=== PATIENT | female | born 1940 | race Caucasian/White ===

== ENCOUNTER 2022-03-15 14:55 | Inpatient (IN) | payer MEDICARE, BC ==
[~2022-03-15] VITALS: Ht 165.1 cm; Wt 78.0 kg
[2022-03-15] MEDS ORDERED: MORPHINE SULFATE 4 MG/1 ML DISP.SYRIN IV ONE (15:15)
[2022-03-15] MEDS ORDERED: IV NORMAL SALINE 1000 ML BAG IV ONE (15:15)
[2022-03-15] MEDS ORDERED: MORPHINE SULFATE 4 MG/1 ML DISP.SYRIN ONE (15:22)
[2022-03-15 15:35] LABS: HEMATOCRIT 38.2 % (31.2-41.9); MEAN CORPUSCULAR HEMOGLOBIN 28.2 uug (24.7-32.8); MEAN CORPUSCULAR VOLUME 87.3 fL (75.5-95.3); PLATELET COUNT (AUTO) 195 K/uL (179-408)
[2022-03-15 15:46] LABS: CREATININE 1.1 mg/dL (0.6-1.3); POTASSIUM 3.9 mmol/L (3.5-5.1)
[2022-03-15 15:57] LABS: BILIRUBIN,DIRECT 0.3 mg/dL (0.0-0.2); BILIRUBIN,TOTAL 1.2 mg/dL (0.2-1.0); TOTAL PROTEIN, SERUM 7.3 g/dL (6.4-8.2)
[2022-03-15 16:31] LABS: *BILIRUBIN,URIN NEGATIVE (NEGATIVE); *BLOOD, URINE 2+ (NEGATIVE); *CLARITY,URINE CLEAR (CLEAR); *COLOR,URINE YELLOW (YELLOW); *KETONES,URINE NEGATIVE (NEGATIVE); *UROBILINOGEN,URINE 0.2 E.U./dl (NORMAL); LEUKOCYTE ESTERASE ,URINE NEGATIVE (NEGATIVE); NITRITE, URINE NEGATIVE (NEGATIVE); PH,URINE 6.5 (5.0-8.0); UGLUCOSE NEGATIVE (NEGATIVE)
[2022-03-15 16:49] LABS: BACTERIA,URINE NONE SEEN /HPF (NONE SEEN); RBC,URINE 0-3 /HPF (0-3); SQUAMOUS EPITHELIAL CELL,UR FEW /HPF (NONE SEEN); URIC ACID CRYSTALS,URINE FEW /HPF (NONE SEEN); WBC,URINE NONE SEEN /HPF (0-3)
--- NOTE | 2022-03-15 16:49 | NUR ---
Dr Valentin spoke with Dr Andi Melo for surgery consult.
[2022-03-15] MEDS ORDERED: PIPERACILLIN/TAZOBACTAM/D5W 50 ML IV ONE ×2 (17:00→21:52)
[2022-03-15] MEDS ORDERED: PIPERACILLIN SODIUM/TAZOBACTAM 3.375 G in IV DEXTROSE 5% 50 ML IV ONE (17:00)
--- NOTE | 2022-03-15 17:05 | NUR ---
Dr Valentin spoke to Jimi [employer] elementary instructional coach for [facility] who accept patient.
[2022-03-15] MEDS ORDERED: FOLIC ACID PO (17:23)
[2022-03-15] MEDS ORDERED: TURM1CAP2 PO (17:23)
[2022-03-15] MEDS ORDERED: MULT-465 PO (17:23)
[2022-03-15] MEDS ORDERED: MAGN296S70 PO (17:23)
[2022-03-15] MEDS ORDERED: METO-356 PO (17:23)
[2022-03-15] MEDS ORDERED: ASPI81TA31 PO (17:23)
[2022-03-15] MEDS ORDERED: GABA600T12 PO (17:23)
[2022-03-15] MEDS ORDERED: METF-440 PO (17:23)
[2022-03-15] MEDS ORDERED: VALS1TAB2 PO (17:23)
[2022-03-15] MEDS ORDERED: HYDR-3980 PO (17:23)
[2022-03-15] MEDS ORDERED: UBID100C13 PO (17:23)
[2022-03-15] MEDS ORDERED: BUPR150T10 PO (17:23)
[2022-03-15] MEDS ORDERED: DULO20CA PO (17:23)
[2022-03-15] MEDS ORDERED: MELA3TAB41 PO (17:23)
[2022-03-15] MEDS ORDERED: VITAMIN D3 PO (17:23)
[2022-03-15] MEDS ORDERED: TRAZ-257 PO (17:23)
--- NOTE | 2022-03-15 19:10 | NUR ---
Change of shift report from Portia CALDERA
[2022-03-15] MEDS ORDERED: PANTOPRAZOLE SODIUM IV 40 MG in IV DEXTROSE 5% 100 ML IV SCH (19:15)
[2022-03-15] MEDS ORDERED: ONDANSETRON 4 MG/2 ML VIAL IV PRN (19:15)
[2022-03-15] MEDS ORDERED: ACETAMINOPHEN 325 MG TABLET PO PRN (19:15)
--- NOTE | 2022-03-15 19:37 | NUR ---
Patient will be transfered to M/S room 303 under Yarelis Krause NP
[2022-03-15 20:00] VITALS: BP 152/60
--- NOTE | 2022-03-15 20:10 | NUR ---
Report given to Bella CALDERA
--- NOTE | 2022-03-15 20:52 | NUR ---
Pt. admitted to m/s , under care of Yarelis Krause NP Belongs List completed
--- NOTE | 2022-03-15 20:55 | NUR ---
Admitted from ER via w/c, alert and oriented x3 Dx: Diverticulitis with possible perforation. No acute distress noted. Right AC heplock intact. NPO. Routine admission care done, oriented to room, TV, BR and call light. Plan of care initiated.
[2022-03-15] MEDS ORDERED: PANTOPRAZOLE SODIUM 40 MG VIAL IV SCH (21:00)
[2022-03-15] MEDS: MORPHINE SULFATE 2 MG/1 ML DISP.SYRIN IV PRN (21:47)
[2022-03-15] MEDS ORDERED: hydrALAZINE HCL 20 MG/1 ML VIAL IV PRN (22:00)
[2022-03-15] MEDS ORDERED: PIPERACILLIN SODIUM/TAZOBACTAM 3.375 G in IV DEXTROSE 5% 50 ML IV SCH (22:00)
[2022-03-15] MEDS ORDERED: DEXTROSE 50% 50 ML DISP.SYRIN IV PRN (22:00)
[2022-03-16] MEDS: PIPERACILLIN SODIUM/TAZOBACTAM 3.375 G in IV DEXTROSE 5% 100 ML IV SCH ×3 (00:53→16:02)
[2022-03-16] MEDS: BLOOD SUGAR DIAGNOSTIC 1 EACH STRIP VI SCH ×4 (00:53→17:06)
[2022-03-16] MEDS: INSULIN REGULAR, HUMAN 300 UNIT/3 ML VIAL SQ PRN ×5 (01:29→17:09)
--- NOTE | 2022-03-16 01:32 | NUR ---
Blood sugar 147, not covered d/t patient is on NPO. Roman Malcolm NP aware.
[2022-03-16] MEDS: MORPHINE SULFATE 2 MG/1 ML DISP.SYRIN IV PRN ×2 (03:32→17:17)
[2022-03-16 04:00] VITALS: BP 143/53
--- NOTE | 2022-03-16 06:41 | NUR ---
Regular insulin not given r/t patient is NPO, no signs of hyperglycemia noted.
[2022-03-16 08:28] LABS: HEMATOCRIT 36.3 % (31.2-41.9); MEAN CORPUSCULAR HEMOGLOBIN 28.6 uug (24.7-32.8); MEAN CORPUSCULAR VOLUME 87.8 fL (75.5-95.3); PLATELET COUNT (AUTO) 186 K/uL (179-408)
[2022-03-16 08:34] LABS: CREATININE 1.1 mg/dL (0.6-1.3); MAGNESIUM 1.8 mg/dL (1.8-2.4); PHOSPHOROUS 2.2 mg/dL (2.5-4.9); POTASSIUM 3.5 mmol/L (3.5-5.1)
[2022-03-16] MEDS ORDERED: PANTOPRAZOLE SODIUM 40 MG VIAL IV SCH ×2 (09:00→21:00)
[2022-03-16 11:13] VITALS: BP 134/54
[2022-03-16 15:12] VITALS: BP 139/77
[2022-03-16] MEDS ORDERED: NEUTRA PHOS PACKET PO ONE (16:00)
--- NOTE | 2022-03-16 17:22 | NUR ---
Pt refused to advance diet even though shes tolerating well. Pt is afraid that solid foods will hurt her stomach more. Pt is having bowel movements, loose. Administered PRN morphine.
[2022-03-16 20:42] VITALS: BP 159/70
[2022-03-17] MEDS: BLOOD SUGAR DIAGNOSTIC 1 EACH STRIP VI SCH ×5 (00:02→21:11)
[2022-03-17] MEDS: MORPHINE SULFATE 2 MG/1 ML DISP.SYRIN IV PRN ×3 (00:03→19:51)
[2022-03-17] MEDS: INSULIN REGULAR, HUMAN 300 UNIT/3 ML VIAL SQ PRN ×5 (00:39→21:13)
[2022-03-17] MEDS: PIPERACILLIN SODIUM/TAZOBACTAM 3.375 G in IV DEXTROSE 5% 100 ML IV SCH ×3 (00:59→18:08)
[2022-03-17] MEDS: LORAZEPAM 2 MG/1 ML VIAL IV PRN (01:09)
[2022-03-17 04:18] VITALS: BP 155/72
[2022-03-17 07:18] LABS: POTASSIUM 3.3 mmol/L (3.5-5.1)
[2022-03-17] MEDS ORDERED: DEXTROSE 50% 50 ML DISP.SYRIN IV PRN (07:30)
[2022-03-17] MEDS: PANTOPRAZOLE SODIUM 40 MG VIAL IV SCH (08:03)
[2022-03-17] MEDS ORDERED: MAGNESIUM CITRATE 296 ML BOTTLE PO PRN (08:30)
[2022-03-17] MEDS ORDERED: HYDROCODONE/APAP 10-325 MG TABLET PO PRN (08:30)
[2022-03-17] MEDS: METOPROLOL SUCCINATE XL 25 MG TAB.SR.24H PO SCH ×2 (08:50→21:11)
[2022-03-17] MEDS: MULTIVIT, IRON, MIN NO. 8, FA TABLET PO SCH (08:50)
[2022-03-17] MEDS: HYDROCHLOROTHIAZIDE 12.5 MG CAPSULE PO SCH (08:50)
[2022-03-17] MEDS: ASPIRIN 81 MG TAB.CHEW PO SCH (08:50)
[2022-03-17] MEDS: VALSARTAN 80 MG TABLET PO SCH (08:50)
[2022-03-17] MEDS: CHOLECALCIFEROL 1,000 UNIT TABLET PO SCH (08:50)
[2022-03-17] MEDS: GABAPENTIN 300 MG CAPSULE PO SCH ×2 (08:50→16:19)
[2022-03-17] MEDS: DULOXETINE 20 MG CAPSULE.DR PO SCH (08:50)
[2022-03-17] MEDS ORDERED: buPROPion SR 150 MG TABLET.SA PO SCH (09:00)
[2022-03-17] MEDS ORDERED: Medication Not On Formulary EA (Valsartan/Hydrochlorothiazide (Diovan Hct 80-12.5 Mg Tab PO SCH (09:00)
[2022-03-17] MEDS ORDERED: Medication Not On Formulary EA (Ubidecarenone (Coq-10) 200 MG) PO SCH (09:00)
[2022-03-17] MEDS ORDERED: FOLIC ACID 1 MG TABLET PO SCH (09:00)
[2022-03-17] MEDS ORDERED: Medication Not On Formulary EA (Turmeric/Turmeric Root Extract (Turmeric 500 mg Capsule) PO SCH (09:00)
[2022-03-17] MEDS: FOLIC ACID 1 MG TABLET PO SCH (09:07)
[2022-03-17 09:50] LABS: BILIRUBIN,TOTAL 2.1 mg/dL (0.2-1.0); POTASSIUM 3.4 mmol/L (3.5-5.1); TOTAL PROTEIN, SERUM 7.2 g/dL (6.4-8.2)
[2022-03-17] MEDS ORDERED: POTASSIUM CHLORIDE 20 MEQ POWDER PACKET PO ONE (10:30)
[2022-03-17] MEDS ORDERED: POTASSIUM CHLORIDE 20 MEQ TAB.PRT.SR PO ONE (11:00)
[2022-03-17 11:15] VITALS: BP 104/51
[2022-03-17] MEDS: buPROPion SR 150 MG TABLET.SA PO SCH (11:19)
[2022-03-17] MEDS: buPROPion SR 100 MG TABLET.SA PO SCH (11:19)
[2022-03-17] MEDS ORDERED: IOHEXOL 300MG/ML 100 ML INFUS..BTL ONE (14:57)
[2022-03-17] MEDS ORDERED: SWABABLE VALVE TRANSFER SET EA MC ONE (14:57)
[2022-03-17] MEDS ORDERED: IV NORMAL SALINE 250 ML IV ONE (14:57)
[2022-03-17 15:35] VITALS: BP 119/55
[2022-03-17] MEDS ORDERED: NEUTRA PHOS PACKET PO ONE (16:00)
[2022-03-17 20:00] VITALS: BP 130/59
[2022-03-17] MEDS: MELATONIN 3 MG TABLET PO SCH (21:10)
[2022-03-17] MEDS: TRAZODONE 100 MG TABLET PO SCH (21:10)
[2022-03-18] MEDS: PIPERACILLIN SODIUM/TAZOBACTAM 3.375 G in IV DEXTROSE 5% 100 ML IV SCH ×3 (01:01→16:34)
[2022-03-18 04:00] VITALS: BP 114/39
--- NOTE | 2022-03-18 06:45 | NUR ---
Roman Malcolm NP discussed result of CT of abdomen/pelvis with contrast, findings are suspicious for small bowel obstruction, likely due to adhesions at the site of sigmoid perforation. Relayed results to Dr. Aubrey Melo.
[2022-03-18 06:50] LABS: HEMATOCRIT 33.5 % (31.2-41.9); MEAN CORPUSCULAR HEMOGLOBIN 28.7 uug (24.7-32.8); MEAN CORPUSCULAR VOLUME 87.2 fL (75.5-95.3); PLATELET COUNT (AUTO) 208 K/uL (179-408)
[2022-03-18] MEDS: BLOOD SUGAR DIAGNOSTIC 1 EACH STRIP VI SCH ×4 (06:53→20:07)
[2022-03-18 07:04] LABS: CREATININE 1.1 mg/dL (0.6-1.3); POTASSIUM 3.6 mmol/L (3.5-5.1)
[2022-03-18 07:19] LABS: BILIRUBIN,TOTAL 1.5 mg/dL (0.2-1.0); TOTAL PROTEIN, SERUM 6.5 g/dL (6.4-8.2)
[2022-03-18] MEDS: INSULIN REGULAR, HUMAN 300 UNIT/3 ML VIAL SQ PRN (07:36)
[2022-03-18] MEDS: DULOXETINE 20 MG CAPSULE.DR PO SCH (08:02)
[2022-03-18] MEDS: ASPIRIN 81 MG TAB.CHEW PO SCH (08:02)
[2022-03-18] MEDS: MULTIVIT, IRON, MIN NO. 8, FA TABLET PO SCH (08:02)
[2022-03-18] MEDS: PANTOPRAZOLE SODIUM 40 MG VIAL IV SCH (08:02)
[2022-03-18] MEDS: VALSARTAN 80 MG TABLET PO SCH (08:03)
[2022-03-18] MEDS: METOPROLOL SUCCINATE XL 25 MG TAB.SR.24H PO SCH ×2 (08:03→20:06)
[2022-03-18] MEDS: buPROPion SR 150 MG TABLET.SA PO SCH (08:03)
[2022-03-18] MEDS: buPROPion SR 100 MG TABLET.SA PO SCH (08:03)
[2022-03-18] MEDS: FOLIC ACID 1 MG TABLET PO SCH (08:03)
[2022-03-18] MEDS: CHOLECALCIFEROL 1,000 UNIT TABLET PO SCH (08:03)
[2022-03-18] MEDS: GABAPENTIN 300 MG CAPSULE PO SCH ×2 (08:03→16:13)
[2022-03-18] MEDS: HYDROCHLOROTHIAZIDE 12.5 MG CAPSULE PO SCH (08:03)
[2022-03-18 12:00] VITALS: BP 130/58
[2022-03-18] MEDS ORDERED: DIATR MEGLU/DIATRIZOATE SODIUM 30 ML BOTTLE ONE (12:24)
[2022-03-18 15:55] VITALS: BP 116/60
[2022-03-18] MEDS: IV D5 1/2 NS 1000 ML 1,000 ML IV PRN (16:42)
[2022-03-18 20:00] VITALS: BP 101/60
[2022-03-18] MEDS: MELATONIN 3 MG TABLET PO SCH (20:06)
[2022-03-18] MEDS: TRAZODONE 100 MG TABLET PO SCH (20:07)
[2022-03-18] MEDS: MORPHINE SULFATE 2 MG/1 ML DISP.SYRIN IV PRN (22:23)
[2022-03-19] MEDS: PIPERACILLIN SODIUM/TAZOBACTAM 3.375 G in IV DEXTROSE 5% 100 ML IV SCH ×3 (00:10→17:04)
[2022-03-19 06:00] VITALS: BP 109/42
[2022-03-19] MEDS: BLOOD SUGAR DIAGNOSTIC 1 EACH STRIP VI SCH ×4 (06:08→21:00)
[2022-03-19] MEDS: PANTOPRAZOLE SODIUM 40 MG TABLET.DR PO SCH (06:09)
[2022-03-19 06:53] LABS: HEMATOCRIT 32.6 % (31.2-41.9); MEAN CORPUSCULAR HEMOGLOBIN 28.9 uug (24.7-32.8); MEAN CORPUSCULAR VOLUME 87.3 fL (75.5-95.3); PLATELET COUNT (AUTO) 206 K/uL (179-408)
[2022-03-19 07:04] LABS: CREATININE 0.9 mg/dL (0.6-1.3); POTASSIUM 3.1 mmol/L (3.5-5.1)
[2022-03-19 07:11] LABS: BILIRUBIN,TOTAL 1.6 mg/dL (0.2-1.0); TOTAL PROTEIN, SERUM 6.6 g/dL (6.4-8.2)
--- NOTE | 2022-03-19 08:00 | NUR ---
Kept pt NPO for procedure. Consent signed. F/u Call made to lab re: coagulation per lab they states in process. Fu with radiology on time set up with IR for the procedure awaiting call back froM IR to confirm.
[2022-03-19] MEDS ORDERED: ASPIRIN 81 MG TAB.CHEW PO SCH (09:00)
[2022-03-19] MEDS: POTASSIUM CHLORIDE 50 ML IV SCH ×4 (09:14→13:33)
[2022-03-19] MEDS: DULOXETINE 20 MG CAPSULE.DR PO SCH (09:25)
[2022-03-19] MEDS: buPROPion SR 150 MG TABLET.SA PO SCH (09:25)
[2022-03-19] MEDS: GABAPENTIN 300 MG CAPSULE PO SCH ×2 (09:26→17:04)
[2022-03-19] MEDS: HYDROCHLOROTHIAZIDE 12.5 MG CAPSULE PO SCH (09:26)
[2022-03-19] MEDS: MULTIVIT, IRON, MIN NO. 8, FA TABLET PO SCH (09:26)
[2022-03-19] MEDS: CHOLECALCIFEROL 1,000 UNIT TABLET PO SCH (09:26)
[2022-03-19] MEDS: METOPROLOL SUCCINATE XL 25 MG TAB.SR.24H PO SCH ×2 (09:26→22:08)
[2022-03-19] MEDS: FOLIC ACID 1 MG TABLET PO SCH (09:26)
[2022-03-19] MEDS: VALSARTAN 80 MG TABLET PO SCH (09:27)
[2022-03-19] MEDS: buPROPion SR 100 MG TABLET.SA PO SCH (09:47)
--- NOTE | 2022-03-19 10:00 | NUR ---
RAD states plan for procedure at 2pm. Another f/u call made with lab for coagulation. Lab states "they are having problems with the machines"
[2022-03-19] MEDS: MORPHINE SULFATE 2 MG/1 ML DISP.SYRIN IV PRN ×3 (11:12→22:09)
[2022-03-19 12:00] VITALS: BP 125/52
--- NOTE | 2022-03-19 12:30 | NUR ---
Still no results from lab. Asked to have long term care administrator deliver specimen at [facility] to process lab works.
[2022-03-19] MEDS ORDERED: MIDAZOLAM HCL 2 MG/2 ML VIAL IV PRN (13:00)
[2022-03-19] MEDS ORDERED: FENTANYL CITRATE 100 MCG/2 ML AMPUL IV PRN (13:00)
[2022-03-19] MEDS ORDERED: NALOXONE HCL 0.4 MG/ML AMPUL IV PRN (13:00)
[2022-03-19] MEDS: INSULIN REGULAR, HUMAN 300 UNIT/3 ML VIAL SQ PRN ×2 (13:03→22:23)
--- NOTE | 2022-03-19 15:00 | NUR ---
Lab coagulation resulted however IR dr cancelled procedure due to availability.
--- NOTE | 2022-03-19 15:32 | NUR ---
Updated from morning shift technologist. Waiting for labs to process. Phone called by VERENICE Deras for PT Adi, Labs sent out around 2:30pm. [place] to call Radiology Department when ready.
[2022-03-19 16:00] VITALS: BP 144/60
--- NOTE | 2022-03-19 16:18 | NUR ---
Received phone call per [place]. Rely message after informing the RN by 1pm Drainage per Dr. Danielle. Called the Floor to inform [place] via Christelle that Procedure to be done by 1pm tomorrow 03/01/2022.
[2022-03-19 20:00] VITALS: BP 122/62
[2022-03-19] MEDS: MELATONIN 3 MG TABLET PO SCH (22:08)
[2022-03-19] MEDS: IV D5 1/2 NS 1000 ML 1,000 ML IV PRN (22:09)
[2022-03-19] MEDS: TRAZODONE 100 MG TABLET PO SCH (22:10)
--- NOTE | 2022-03-19 22:30 | NUR ---
Pt complained of abdominal pain. Morphine given as ordered.
[2022-03-20] MEDS: PIPERACILLIN SODIUM/TAZOBACTAM 3.375 G in IV DEXTROSE 5% 100 ML IV SCH ×3 (01:42→17:56)
[2022-03-20 03:30] VITALS: BP 132/65
[2022-03-20 06:35] LABS: HEMATOCRIT 31.5 % (31.2-41.9); MEAN CORPUSCULAR HEMOGLOBIN 29.1 uug (24.7-32.8); MEAN CORPUSCULAR VOLUME 86.4 fL (75.5-95.3); PLATELET COUNT (AUTO) 228 K/uL (179-408)
[2022-03-20] MEDS: PANTOPRAZOLE SODIUM 40 MG TABLET.DR PO SCH (06:46)
[2022-03-20] MEDS: BLOOD SUGAR DIAGNOSTIC 1 EACH STRIP VI SCH ×4 (06:46→21:21)
[2022-03-20 07:02] LABS: PHOSPHOROUS 3.2 mg/dL (2.5-4.9)
--- NOTE | 2022-03-20 07:04 | NUR ---
Slept intermittently. Maintained NPO since midnight. All needs attended.
[2022-03-20 07:17] LABS: POTASSIUM 3.3 mmol/L (3.5-5.1)
[2022-03-20 07:23] LABS: BILIRUBIN,TOTAL 0.8 mg/dL (0.2-1.0); TOTAL PROTEIN, SERUM 6.5 g/dL (6.4-8.2)
[2022-03-20] MEDS: MORPHINE SULFATE 2 MG/1 ML DISP.SYRIN IV PRN ×3 (08:06→23:57)
[2022-03-20] MEDS ORDERED: ASPIRIN 81 MG TAB.CHEW PO SCH (09:00)
[2022-03-20] MEDS: ASPIRIN 81 MG TAB.CHEW PO SCH (09:00)
--- NOTE | 2022-03-20 09:00 | NUR ---
PT STILL NPO. HELD MORNING MEDS. PT WILL UNDERGO A CT GUIDED DRAINAGE EXTRALUMINAL FLUID. WILL GIVE MEDS AFTER THE PROCEDURE.
[2022-03-20] MEDS: POTASSIUM CHLORIDE 50 ML IV SCH ×2 (10:31→11:00)
[2022-03-20 11:32] VITALS: BP 126/54
[2022-03-20] MEDS ORDERED: LIDOCAINE HCL 1% 20 ML VIAL ONE (12:13)
[2022-03-20] MEDS ORDERED: NALOXONE HCL 0.4 MG/ML AMPUL IV PRN (13:00)
[2022-03-20] MEDS ORDERED: MIDAZOLAM HCL 2 MG/2 ML VIAL IV PRN (13:00)
[2022-03-20] MEDS ORDERED: FENTANYL CITRATE 100 MCG/2 ML AMPUL IV PRN (13:00)
[2022-03-20] MEDS ORDERED: FLUMAZENIL 0.5 MG/5 ML VIAL IVP PRN (13:00)
[2022-03-20 15:30] VITALS: BP 115/42
[2022-03-20 15:55] VITALS: BP 136/46
[2022-03-20 16:05] VITALS: BP 134/45
[2022-03-20] MEDS: DULOXETINE 20 MG CAPSULE.DR PO SCH (16:32)
[2022-03-20] MEDS: FOLIC ACID 1 MG TABLET PO SCH (16:33)
[2022-03-20] MEDS: CHOLECALCIFEROL 1,000 UNIT TABLET PO SCH (16:34)
[2022-03-20] MEDS: buPROPion SR 100 MG TABLET.SA PO SCH (16:34)
[2022-03-20] MEDS: MULTIVIT, IRON, MIN NO. 8, FA TABLET PO SCH (16:34)
[2022-03-20] MEDS: GABAPENTIN 300 MG CAPSULE PO SCH ×2 (16:34→17:00)
[2022-03-20] MEDS: buPROPion SR 150 MG TABLET.SA PO SCH (16:35)
[2022-03-20] MEDS: VALSARTAN 80 MG TABLET PO SCH (16:35)
[2022-03-20] MEDS: METOPROLOL SUCCINATE XL 25 MG TAB.SR.24H PO SCH ×2 (16:39→22:31)
[2022-03-20] MEDS: HYDROCHLOROTHIAZIDE 12.5 MG CAPSULE PO SCH (16:42)
[2022-03-20 19:49] VITALS: BP 131/42
[2022-03-20] MEDS: TRAZODONE 100 MG TABLET PO SCH (21:21)
[2022-03-20] MEDS: MELATONIN 3 MG TABLET PO SCH (21:21)
[2022-03-20] MEDS: INSULIN REGULAR, HUMAN 300 UNIT/3 ML VIAL SQ PRN (21:26)
[2022-03-21] MEDS: PIPERACILLIN SODIUM/TAZOBACTAM 3.375 G in IV DEXTROSE 5% 100 ML IV SCH ×3 (00:34→18:03)
[2022-03-21] MEDS: LORAZEPAM 2 MG/1 ML VIAL IV PRN (01:58)
[2022-03-21 04:20] VITALS: BP 127/48
[2022-03-21] MEDS: PANTOPRAZOLE SODIUM 40 MG TABLET.DR PO SCH (06:04)
[2022-03-21] MEDS: BLOOD SUGAR DIAGNOSTIC 1 EACH STRIP VI SCH ×4 (06:04→21:02)
[2022-03-21 06:25] LABS: HEMATOCRIT 30.6 % (31.2-41.9); MEAN CORPUSCULAR VOLUME 87.1 fL (75.5-95.3); PLATELET COUNT (AUTO) 239 K/uL (179-408)
--- NOTE | 2022-03-21 06:32 | NUR ---
Patient alert oriented, no sob no chest pain, patient DARÍO has little drainage noted, flushed with 10cc ns as ordered, medicated for pain of 8/10, also has episode of anxiety unable to sleep, givne Ativan as ordered with help. assisted with toileting, cont to monitor.
[2022-03-21 07:01] LABS: BILIRUBIN,DIRECT 0.3 mg/dL (0.0-0.2); BILIRUBIN,TOTAL 0.7 mg/dL (0.2-1.0); PHOSPHOROUS 3.4 mg/dL (2.5-4.9); POTASSIUM 3.3 mmol/L (3.5-5.1); TOTAL PROTEIN, SERUM 6.4 g/dL (6.4-8.2)
[2022-03-21] MEDS: ASPIRIN 81 MG TAB.CHEW PO SCH (09:00)
[2022-03-21] MEDS: buPROPion SR 150 MG TABLET.SA PO SCH (09:12)
[2022-03-21] MEDS: FOLIC ACID 1 MG TABLET PO SCH (09:12)
[2022-03-21] MEDS: HYDROCHLOROTHIAZIDE 12.5 MG CAPSULE PO SCH (09:13)
[2022-03-21] MEDS: GABAPENTIN 300 MG CAPSULE PO SCH ×2 (09:13→17:37)
[2022-03-21] MEDS: CHOLECALCIFEROL 1,000 UNIT TABLET PO SCH (09:13)
[2022-03-21] MEDS: DULOXETINE 20 MG CAPSULE.DR PO SCH (09:13)
[2022-03-21] MEDS: MULTIVIT, IRON, MIN NO. 8, FA TABLET PO SCH (09:13)
[2022-03-21] MEDS: buPROPion SR 100 MG TABLET.SA PO SCH (09:13)
[2022-03-21] MEDS: VALSARTAN 80 MG TABLET PO SCH (09:18)
[2022-03-21] MEDS: METOPROLOL SUCCINATE XL 25 MG TAB.SR.24H PO SCH ×2 (09:19→21:42)
[2022-03-21] MEDS ORDERED: POTASSIUM CHLORIDE 50 ML IV SCH (10:15)
[2022-03-21] MEDS ORDERED: POTASSIUM CHLORIDE 20 MEQ TAB.PRT.SR PO ONE ×2 (10:45→12:00)
[2022-03-21 11:45] VITALS: BP 138/56
[2022-03-21 15:50] VITALS: BP 124/59
[2022-03-21] MEDS: MORPHINE SULFATE 2 MG/1 ML DISP.SYRIN IV PRN (15:57)
--- NOTE | 2022-03-21 16:45 | NUR ---
advance diet to clear liquids per dr Andi bryant.
--- NOTE | 2022-03-21 19:00 | NUR ---
erin drain 10cc
--- NOTE | 2022-03-21 19:35 | NUR ---
Patient alert oriented, no sob no chest pain, no complain of pain at this time, assisted with toileting, DARÍO has 60cc yellowish color drainage, cont to monitor.
[2022-03-21 20:30] VITALS: BP 148/53
[2022-03-21] MEDS: MELATONIN 3 MG TABLET PO SCH (21:42)
[2022-03-21] MEDS: TRAZODONE 100 MG TABLET PO SCH (21:42)
[2022-03-21] MEDS: INSULIN REGULAR, HUMAN 300 UNIT/3 ML VIAL SQ PRN (21:51)
[2022-03-21] MEDS: IV D5 1/2 NS 1000 ML 1,000 ML IV PRN (22:28)
[2022-03-22] MEDS: PIPERACILLIN SODIUM/TAZOBACTAM 3.375 G in IV DEXTROSE 5% 100 ML IV SCH ×3 (01:18→16:18)
[2022-03-22] MEDS: LORAZEPAM 2 MG/1 ML VIAL IV PRN (01:34)
--- NOTE | 2022-03-22 01:35 | NUR ---
Patient having anxiety tossing and turning in bed, requested an Ativan, given as ordered, cont to monitor.
[2022-03-22] MEDS: MORPHINE SULFATE 2 MG/1 ML DISP.SYRIN IV PRN (03:26)
[2022-03-22 04:10] VITALS: BP 145/50
[2022-03-22] MEDS: BLOOD SUGAR DIAGNOSTIC 1 EACH STRIP VI SCH ×4 (06:08→21:09)
[2022-03-22] MEDS: PANTOPRAZOLE SODIUM 40 MG TABLET.DR PO SCH (06:08)
[2022-03-22 06:58] LABS: HEMATOCRIT 31.5 % (31.2-41.9); MEAN CORPUSCULAR HEMOGLOBIN 28.9 uug (24.7-32.8); MEAN CORPUSCULAR VOLUME 86.4 fL (75.5-95.3); PLATELET COUNT (AUTO) 248 K/uL (179-408)
--- NOTE | 2022-03-22 07:00 | NUR ---
Patient alert oriented, ambulate to toilet with assist, DARÍO draining very little, flushed with ns 10cc as order, complain of back pain, given Morphine as ordered with effective results, cont to monitor.
[2022-03-22 07:12] LABS: PHOSPHOROUS 3.1 mg/dL (2.5-4.9); POTASSIUM 3.5 mmol/L (3.5-5.1)
[2022-03-22] MEDS: DULOXETINE 20 MG CAPSULE.DR PO SCH (09:58)
[2022-03-22] MEDS: VALSARTAN 80 MG TABLET PO SCH (09:58)
[2022-03-22] MEDS: HYDROCHLOROTHIAZIDE 12.5 MG CAPSULE PO SCH (09:58)
[2022-03-22] MEDS: METOPROLOL SUCCINATE XL 25 MG TAB.SR.24H PO SCH ×2 (09:59→21:08)
[2022-03-22] MEDS: CHOLECALCIFEROL 1,000 UNIT TABLET PO SCH (09:59)
[2022-03-22] MEDS: MULTIVIT, IRON, MIN NO. 8, FA TABLET PO SCH (09:59)
[2022-03-22] MEDS: FOLIC ACID 1 MG TABLET PO SCH (10:00)
[2022-03-22] MEDS: buPROPion SR 100 MG TABLET.SA PO SCH (10:00)
[2022-03-22] MEDS: buPROPion SR 150 MG TABLET.SA PO SCH (10:01)
[2022-03-22] MEDS: ASPIRIN 81 MG TAB.CHEW PO SCH (10:02)
[2022-03-22] MEDS: GABAPENTIN 300 MG CAPSULE PO SCH ×2 (10:02→16:18)
[2022-03-22 11:01] VITALS: BP 127/57
[2022-03-22] MEDS: INSULIN REGULAR, HUMAN 300 UNIT/3 ML VIAL SQ PRN ×2 (12:03→22:45)
[2022-03-22 15:09] VITALS: BP 133/58
[2022-03-22] MEDS: IV D5 1/2 NS 1000 ML 1,000 ML IV PRN (16:50)
--- NOTE | 2022-03-22 19:09 | NUR ---
0730-Rec'd patient with DARÍO draining and drainage at about 65cc, Patient with no c/o any discomfort or pain. No physical or respiratory distress noted; call light within reach. 1000-Patietn is continent of both with BRP, requires of one person assist to use the restroom, assist as needed. 1844-Patient had a small BM loose and voided x4, DARÍO drainage=75cc, bag marked, timed and dated. 1849-CT abdomen w/o contrast results relayed to surgeon with no new orders at this time.
[2022-03-22 20:33] VITALS: BP 149/48
[2022-03-22] MEDS: TRAZODONE 100 MG TABLET PO SCH (21:08)
[2022-03-22] MEDS: MELATONIN 3 MG TABLET PO SCH (21:16)
[2022-03-23] MEDS: PIPERACILLIN SODIUM/TAZOBACTAM 3.375 G in IV DEXTROSE 5% 100 ML IV SCH ×3 (00:38→17:17)
[2022-03-23] MEDS: MORPHINE SULFATE 2 MG/1 ML DISP.SYRIN IV PRN (00:52)
[2022-03-23 04:41] VITALS: BP 125/48
--- NOTE | 2022-03-23 05:52 | NUR ---
Patient asleep but arousable, hob elevated, DARÍO draining with little amount of yellowish color drainage, dressing intact, flushed with 10cc NS as ordered tolerate well, Patient complain of back pain, given Morphine 2mg iv with effective results, assisted with toileting, cont to monitor.
[2022-03-23] MEDS: PANTOPRAZOLE SODIUM 40 MG TABLET.DR PO SCH (06:03)
[2022-03-23] MEDS: BLOOD SUGAR DIAGNOSTIC 1 EACH STRIP VI SCH ×4 (06:04→21:54)
[2022-03-23 06:56] LABS: HEMATOCRIT 32.7 % (31.2-41.9); MEAN CORPUSCULAR HEMOGLOBIN 28.6 uug (24.7-32.8); MEAN CORPUSCULAR VOLUME 87.1 fL (75.5-95.3); PLATELET COUNT (AUTO) 259 K/uL (179-408)
[2022-03-23 07:10] LABS: CREATININE 0.9 mg/dL (0.6-1.3); MAGNESIUM 2.1 mg/dL (1.8-2.4); PHOSPHOROUS 3.4 mg/dL (2.5-4.9)
[2022-03-23] MEDS: FOLIC ACID 1 MG TABLET PO SCH (08:54)
[2022-03-23] MEDS: buPROPion SR 100 MG TABLET.SA PO SCH (08:54)
[2022-03-23] MEDS: MULTIVIT, IRON, MIN NO. 8, FA TABLET PO SCH (08:54)
[2022-03-23] MEDS: HYDROCHLOROTHIAZIDE 12.5 MG CAPSULE PO SCH (08:54)
[2022-03-23] MEDS: ASPIRIN 81 MG TAB.CHEW PO SCH (08:54)
[2022-03-23] MEDS: GABAPENTIN 300 MG CAPSULE PO SCH ×2 (08:54→17:17)
[2022-03-23] MEDS: CHOLECALCIFEROL 1,000 UNIT TABLET PO SCH (08:54)
[2022-03-23] MEDS: DULOXETINE 20 MG CAPSULE.DR PO SCH (08:54)
[2022-03-23] MEDS: VALSARTAN 80 MG TABLET PO SCH (08:55)
[2022-03-23] MEDS: METOPROLOL SUCCINATE XL 25 MG TAB.SR.24H PO SCH ×2 (08:55→21:50)
[2022-03-23] MEDS: buPROPion SR 150 MG TABLET.SA PO SCH (08:55)
[2022-03-23] MEDS ORDERED: POTASSIUM CHLORIDE 20 MEQ TAB.PRT.SR PO ONE (09:30)
[2022-03-23] MEDS: INSULIN REGULAR, HUMAN 300 UNIT/3 ML VIAL SQ PRN ×4 (09:57→22:00)
[2022-03-23 11:00] VITALS: BP_SYST 119; BP_SYST 148; BP_DIAS 48; BP_DIAS 57
[2022-03-23] MEDS: IV D5 1/2 NS 1000 ML 1,000 ML IV PRN (13:13)
[2022-03-23 16:00] VITALS: BP 139/46
[2022-03-23 20:16] VITALS: BP 133/49
[2022-03-23] MEDS: TRAZODONE 100 MG TABLET PO SCH (21:49)
[2022-03-23] MEDS: MELATONIN 3 MG TABLET PO SCH (21:50)
[2022-03-24] MEDS: LORAZEPAM 2 MG/1 ML VIAL IV PRN (00:45)
[2022-03-24] MEDS: PIPERACILLIN SODIUM/TAZOBACTAM 3.375 G in IV DEXTROSE 5% 100 ML IV SCH ×3 (01:51→17:15)
[2022-03-24 04:22] VITALS: BP 118/46
[2022-03-24] MEDS: IV D5 1/2 NS 1000 ML 1,000 ML IV PRN (06:17)
[2022-03-24] MEDS: BLOOD SUGAR DIAGNOSTIC 1 EACH STRIP VI SCH ×4 (06:28→21:42)
[2022-03-24] MEDS: PANTOPRAZOLE SODIUM 40 MG TABLET.DR PO SCH (06:29)
[2022-03-24 06:51] LABS: HEMATOCRIT 32.4 % (31.2-41.9); MEAN CORPUSCULAR VOLUME 86.7 fL (75.5-95.3); PLATELET COUNT (AUTO) 275 K/uL (179-408)
[2022-03-24 07:35] LABS: CREATININE 0.8 mg/dL (0.6-1.3); MAGNESIUM 1.9 mg/dL (1.8-2.4); PHOSPHOROUS 3.1 mg/dL (2.5-4.9); POTASSIUM 3.4 mmol/L (3.5-5.1)
[2022-03-24] MEDS ORDERED: POTASSIUM CHLORIDE 20 MEQ TAB.PRT.SR PO ONE (08:30)
[2022-03-24] MEDS: MULTIVIT, IRON, MIN NO. 8, FA TABLET PO SCH (08:38)
[2022-03-24] MEDS: FOLIC ACID 1 MG TABLET PO SCH (08:38)
[2022-03-24] MEDS: buPROPion SR 150 MG TABLET.SA PO SCH (08:38)
[2022-03-24] MEDS: GABAPENTIN 300 MG CAPSULE PO SCH ×2 (08:38→17:10)
[2022-03-24] MEDS: DULOXETINE 20 MG CAPSULE.DR PO SCH (08:38)
[2022-03-24] MEDS: HYDROCHLOROTHIAZIDE 12.5 MG CAPSULE PO SCH (08:38)
[2022-03-24] MEDS: CHOLECALCIFEROL 1,000 UNIT TABLET PO SCH (08:38)
[2022-03-24] MEDS: ASPIRIN 81 MG TAB.CHEW PO SCH (08:38)
[2022-03-24] MEDS: METOPROLOL SUCCINATE XL 25 MG TAB.SR.24H PO SCH ×2 (08:39→21:39)
[2022-03-24] MEDS: buPROPion SR 100 MG TABLET.SA PO SCH (08:39)
[2022-03-24] MEDS: VALSARTAN 80 MG TABLET PO SCH (08:40)
--- NOTE | 2022-03-24 08:47 | NUR ---
SHIFT NOTE: RECEIVED REPORT FROM AM NURSE JACK PT IS ALERT AND ORIENTED TIME X4 PT WAS GIVEN MEDICATION ORDERED AND AM BLOOD SUGAR 132 NO SIGNS OF DIABETIC REACTION NOTED. PT SLEPT DURING THE NIGHT DIDN'T REQUIRE PAIN MEDICATION WILL ENDORSE TO AM NURSE.
[2022-03-24 11:50] VITALS: BP 101/53
[2022-03-24] MEDS: INSULIN REGULAR, HUMAN 300 UNIT/3 ML VIAL SQ PRN (12:06)
[2022-03-24 15:55] VITALS: BP 105/51
--- NOTE | 2022-03-24 18:51 | NUR ---
pt aox4. ambulating adlib. pt a little depress about the hospitalization. md notified. no acute distress noted. md advance diet to regular diet ccho 60gms. dc ivf. pt complain of loose stool, md notified. md order cdiff stool testing will f/u.
[2022-03-24 20:00] VITALS: BP 136/45
[2022-03-24] MEDS: MELATONIN 3 MG TABLET PO SCH (21:39)
[2022-03-24] MEDS: TRAZODONE 100 MG TABLET PO SCH (21:39)
[2022-03-25] MEDS: MORPHINE SULFATE 2 MG/1 ML DISP.SYRIN IV PRN (00:20)
[2022-03-25] MEDS: PIPERACILLIN SODIUM/TAZOBACTAM 3.375 G in IV DEXTROSE 5% 100 ML IV SCH ×3 (00:25→17:35)
[2022-03-25 04:00] VITALS: BP 125/52
[2022-03-25] MEDS: PANTOPRAZOLE SODIUM 40 MG TABLET.DR PO SCH (06:14)
[2022-03-25 06:23] LABS: HEMATOCRIT 30.8 % (31.2-41.9); MEAN CORPUSCULAR HEMOGLOBIN 28.2 uug (24.7-32.8); MEAN CORPUSCULAR VOLUME 87.4 fL (75.5-95.3); PLATELET COUNT (AUTO) 280 K/uL (179-408)
[2022-03-25 06:37] LABS: CREATININE 0.9 mg/dL (0.6-1.3); PHOSPHOROUS 3.3 mg/dL (2.5-4.9); POTASSIUM 4.1 mmol/L (3.5-5.1)
[2022-03-25] MEDS: BLOOD SUGAR DIAGNOSTIC 1 EACH STRIP VI SCH ×3 (06:44→16:58)
[2022-03-25] MEDS: VALSARTAN 80 MG TABLET PO SCH (09:00)
[2022-03-25] MEDS: buPROPion SR 100 MG TABLET.SA PO SCH (09:00)
[2022-03-25] MEDS: buPROPion SR 150 MG TABLET.SA PO SCH (09:00)
[2022-03-25] MEDS: ASPIRIN 81 MG TAB.CHEW PO SCH (09:00)
[2022-03-25] MEDS: HYDROCHLOROTHIAZIDE 12.5 MG CAPSULE PO SCH (09:00)
[2022-03-25] MEDS: CHOLECALCIFEROL 1,000 UNIT TABLET PO SCH (10:50)
[2022-03-25] MEDS: GABAPENTIN 300 MG CAPSULE PO SCH ×2 (10:50→17:45)
[2022-03-25] MEDS: DULOXETINE 20 MG CAPSULE.DR PO SCH (10:51)
[2022-03-25] MEDS: MULTIVIT, IRON, MIN NO. 8, FA TABLET PO SCH (10:52)
[2022-03-25] MEDS: FOLIC ACID 1 MG TABLET PO SCH (10:52)
[2022-03-25] MEDS: METOPROLOL SUCCINATE XL 25 MG TAB.SR.24H PO SCH (10:53)
[2022-03-25 12:11] VITALS: BP 154/58
[2022-03-25] MEDS: INSULIN REGULAR, HUMAN 300 UNIT/3 ML VIAL SQ PRN (14:44)
[2022-03-25 16:06] VITALS: BP 133/61
[2022-03-25 19:58] VITALS: BP 139/56
--- NOTE | 2022-03-25 20:01 | NUR ---
Patient discharge to ARU.
== END 2022-03-25 21:18 | DRG 391 ==
LOC: ER 14:55 → MEDSURG3 20:20
PROVIDERS: ADMIT Nurse Practitioner Acute Care; ATTEND Nurse Practitioner Acute Care
PROC: 05H633Z Insertion of Infusion Device into Left Subclavian Vein, Percutaneous Approach (ICD-10-PCS; principal; 2022-03-17)
PROC: B547ZZA Ultrasonography of Left Subclavian Vein, Guidance (ICD-10-PCS; 2022-03-17)
PROC: 0W9J30Z Drainage of Pelvic Cavity with Drainage Device, Percutaneous Approach (ICD-10-PCS; 2022-03-20)
PROC: 05H533Z Insertion of Infusion Device into Right Subclavian Vein, Percutaneous Approach (ICD-10-PCS; 2022-03-24)
PROC: B546ZZA Ultrasonography of Right Subclavian Vein, Guidance (ICD-10-PCS; 2022-03-24)
DX: K57.20 Diverticulitis of large intestine with perforation and abscess without bleeding (principal); K65.9 Peritonitis, unspecified; E87.1 Hypo-osmolality and hyponatremia; K56.7 Ileus, unspecified; K56.600 Partial intestinal obstruction, unspecified as to cause; E78.5 Hyperlipidemia, unspecified; E11.9 Type 2 diabetes mellitus without complications; F32.A Depression, unspecified; F41.9 Anxiety disorder, unspecified; I10 Essential (primary) hypertension; G89.29 Other chronic pain; D72.829 Elevated white blood cell count, unspecified; E80.6 Other disorders of bilirubin metabolism; F99 Mental disorder, not otherwise specified; N74 Female pelvic inflammatory disorders in diseases classified elsewhere; Z20.822 Contact with and (suspected) exposure to COVID-19
CPT/HCPCS: 36415; 71045; 72192; 72193; 74018; 74150; 83605; 83690; 83735; 84100; 84484; 85025; 85610; 85730; 87070; 87075; 87205; 93005; A4663; C9113; G0378; J1815; J2060; J2250; J2270; J2310; J2543; J3010; J3480; J3490; J7040; Q9963; Q9967

== ENCOUNTER 2022-03-25 21:57 | Inpatient (IN) | payer MEDICARE, BC ==
[~2022-03-25] VITALS: Ht 162.6 cm; Wt 73.5 kg
[~2022-03-25 21:57] MED LIST: ASPI81TA31 PO; BUPR150T10 PO; DULO20CA PO; FOLIC ACID PO; GABA600T12 PO; HYDR-3980 PO; MAGN296S70 PO; MELA3TAB41 PO; METF-440 PO; METO-356 PO; MULT-465 PO; TRAZ-257 PO; TURM1CAP2 PO; UBID100C13 PO; VALS1TAB2 PO; VITAMIN D3 PO
--- NOTE | 2022-03-25 22:00 | NUR ---
Admitted patient to ARU unit under the care of Dr Resendez, Patient alert oriented, no sob no chest pain no complain of pain, min to max assist with adl's. Patient call light within reach.
[2022-03-26] MEDS ORDERED: MAGNESIUM CITRATE 296 ML BOTTLE PO PRN ×2 (00:15→06:15)
[2022-03-26] MEDS: HYDROCODONE/APAP 10-325 MG TABLET PO PRN (00:48)
[2022-03-26 04:06] VITALS: BP 130/55
[2022-03-26 07:50] VITALS: BP 135/61
--- NOTE | 2022-03-26 08:00 | NUR ---
Pt alert and oriented x 4. Pt LBM x 4 days. Will notify MD. Encouraged pt to be as independent as possible and discussed proper pain management. Pt agreeable with plan of care.
[2022-03-26] MEDS ORDERED: FOLIC ACID 0.4 MG PO SCH (09:00)
[2022-03-26] MEDS ORDERED: Medication Not On Formulary EA (Turmeric/Turmeric Root Extract (Turmeric 500 mg Capsule) PO SCH (09:00)
[2022-03-26] MEDS ORDERED: Medication Not On Formulary EA (Ubidecarenone (Coq-10) 200 MG) PO SCH (09:00)
[2022-03-26] MEDS ORDERED: MAGNESIUM HYDROXIDE 30 ML LIQUID UDC PO PRN (09:15)
[2022-03-26] MEDS: DULOXETINE 20 MG CAPSULE.DR PO SCH (09:28)
[2022-03-26] MEDS: HYDROCHLOROTHIAZIDE 12.5 MG CAPSULE PO SCH (09:28)
[2022-03-26] MEDS: CHOLECALCIFEROL 1,000 UNIT TABLET PO SCH (09:28)
[2022-03-26] MEDS: buPROPion SR 150 MG TABLET.SA PO SCH (09:28)
[2022-03-26] MEDS: buPROPion SR 100 MG TABLET.SA PO SCH (09:28)
[2022-03-26] MEDS: FOLIC ACID 1 MG TABLET PO SCH (09:28)
[2022-03-26] MEDS: ASPIRIN 81 MG TAB.CHEW PO SCH (09:28)
[2022-03-26] MEDS: MULTIVIT, IRON, MIN NO. 8, FA TABLET PO SCH (09:29)
[2022-03-26] MEDS: VALSARTAN 80 MG TABLET PO SCH (09:29)
[2022-03-26] MEDS: METFORMIN HCL 500 MG TABLET PO SCH ×2 (09:29→17:52)
[2022-03-26] MEDS: GABAPENTIN 300 MG CAPSULE PO SCH ×2 (09:30→17:52)
[2022-03-26] MEDS: METOPROLOL SUCCINATE XL 25 MG TAB.SR.24H PO SCH ×2 (09:30→21:32)
[2022-03-26] MEDS: REMEDY ESSENTIAL ZINC PASTE 113 GM TOP SCH ×2 (09:31→21:33)
[2022-03-26] MEDS ORDERED: SIMETHICONE 80 MG TAB.CHEW PO PRN (10:45)
[2022-03-26 16:55] VITALS: BP 137/52
--- NOTE | 2022-03-26 19:06 | NUR ---
Pt had a large BM. Pt her stomach is relieved. Pt denies any c/o pain. Call light is within reach.
--- NOTE | 2022-03-26 19:30 | NUR ---
Patient alert oriented, no sob no chest pain, no complain of pain at this time, ambulate to toilet for bowel and bladder elimination, seated at the chair reading her papers, cont to monitor.
[2022-03-26 20:00] VITALS: BP 144/46
[2022-03-26] MEDS: MELATONIN 3 MG TABLET PO SCH (21:32)
[2022-03-26] MEDS: TRAZODONE 100 MG TABLET PO SCH (21:32)
--- NOTE | 2022-03-27 00:35 | NUR ---
NOtify Dr Dudley that patient requesting Ativan po for anxiety specially at night, with order.
[2022-03-27] MEDS: LORAZEPAM 1 MG TABLET PO PRN (00:48)
[2022-03-27 04:00] VITALS: BP 118/75
[2022-03-27 07:50] VITALS: BP 122/51
[2022-03-27] MEDS: buPROPion SR 100 MG TABLET.SA PO SCH (08:38)
[2022-03-27] MEDS: DULOXETINE 20 MG CAPSULE.DR PO SCH (08:38)
[2022-03-27] MEDS: GABAPENTIN 300 MG CAPSULE PO SCH ×2 (08:39→17:16)
[2022-03-27] MEDS: ASPIRIN 81 MG TAB.CHEW PO SCH (08:39)
[2022-03-27] MEDS: MULTIVIT, IRON, MIN NO. 8, FA TABLET PO SCH (08:39)
[2022-03-27] MEDS: HYDROCHLOROTHIAZIDE 12.5 MG CAPSULE PO SCH (08:39)
[2022-03-27] MEDS: METFORMIN HCL 500 MG TABLET PO SCH ×2 (08:39→18:01)
[2022-03-27] MEDS: DOCUSATE SODIUM 100 MG CAPSULE PO SCH (08:39)
[2022-03-27] MEDS: buPROPion SR 150 MG TABLET.SA PO SCH (08:39)
[2022-03-27] MEDS: CHOLECALCIFEROL 1,000 UNIT TABLET PO SCH (08:39)
[2022-03-27] MEDS: FOLIC ACID 1 MG TABLET PO SCH (08:40)
[2022-03-27] MEDS: VALSARTAN 80 MG TABLET PO SCH (08:49)
[2022-03-27] MEDS: METOPROLOL SUCCINATE XL 25 MG TAB.SR.24H PO SCH ×2 (08:49→20:32)
[2022-03-27] MEDS: REMEDY ESSENTIAL ZINC PASTE 113 GM TOP SCH ×2 (08:51→21:12)
--- NOTE | 2022-03-27 14:35 | NUR ---
Receive patient with eyes close,arousable to verbal and tactile stimuli. She is A&O x4. Verbally responsive, can make eye contact and make needs known. No apparent distress. She is very cooperative. Lungs are clear bilaterally, BS present with normal pulses. Patient has Right arm midline 18 gauge. She is continent, able to walk. Patient has been having episode of diarrhea since last night. Culturelle order placed in computer. Skin is clean and intact. Held patient Valsartan @0900. She is in bed resting comfortably. will continue to monitor.
--- NOTE | 2022-03-27 15:42 | NUR ---
INTERDISCIPLINARY TEAM CONFERENCE
[2022-03-27 15:45] VITALS: BP 140/64
[2022-03-27 20:00] VITALS: BP 143/76
[2022-03-27] MEDS: MELATONIN 3 MG TABLET PO SCH (20:31)
[2022-03-27] MEDS: TRAZODONE 100 MG TABLET PO SCH (20:32)
[2022-03-27] MEDS: CULTURELLE CAPSULE PO SCH (20:32)
[2022-03-28 04:00] VITALS: BP 115/55
[2022-03-28 07:59] VITALS: BP 126/53
[2022-03-28] MEDS: DULOXETINE 20 MG CAPSULE.DR PO SCH (08:47)
[2022-03-28] MEDS: MULTIVIT, IRON, MIN NO. 8, FA TABLET PO SCH (08:47)
[2022-03-28] MEDS: CHOLECALCIFEROL 1,000 UNIT TABLET PO SCH (08:47)
[2022-03-28] MEDS: ASPIRIN 81 MG TAB.CHEW PO SCH (08:47)
[2022-03-28] MEDS: HYDROCHLOROTHIAZIDE 12.5 MG CAPSULE PO SCH (08:47)
[2022-03-28] MEDS: FOLIC ACID 1 MG TABLET PO SCH (08:47)
[2022-03-28] MEDS: buPROPion SR 150 MG TABLET.SA PO SCH (08:48)
[2022-03-28] MEDS: METFORMIN HCL 500 MG TABLET PO SCH ×2 (08:48→17:17)
[2022-03-28] MEDS: buPROPion SR 100 MG TABLET.SA PO SCH (08:48)
[2022-03-28] MEDS: METOPROLOL SUCCINATE XL 25 MG TAB.SR.24H PO SCH ×2 (08:48→20:17)
[2022-03-28] MEDS: CULTURELLE CAPSULE PO SCH ×2 (08:48→20:17)
[2022-03-28] MEDS: GABAPENTIN 300 MG CAPSULE PO SCH ×2 (08:48→16:30)
[2022-03-28] MEDS: DOCUSATE SODIUM 100 MG CAPSULE PO SCH (08:48)
[2022-03-28] MEDS: VALSARTAN 80 MG TABLET PO SCH (08:48)
[2022-03-28] MEDS: REMEDY ESSENTIAL ZINC PASTE 113 GM TOP SCH ×2 (08:49→20:18)
--- NOTE | 2022-03-28 10:34 | NUR ---
INDIVIDUALIZED PLAN OF CARE
[2022-03-28] MEDS: HYDROCODONE/APAP 10-325 MG TABLET PO PRN ×2 (10:57→16:30)
[2022-03-28 15:45] VITALS: BP 125/49
[2022-03-28 20:04] VITALS: BP 123/58
[2022-03-28] MEDS: MELATONIN 3 MG TABLET PO SCH (20:17)
[2022-03-28] MEDS: TRAZODONE 100 MG TABLET PO SCH (20:17)
[2022-03-29] MEDS: LORAZEPAM 1 MG TABLET PO PRN (00:42)
[2022-03-29 04:00] VITALS: BP 119/32
--- NOTE | 2022-03-29 04:31 | NUR ---
Patient awake, no sob no chest pain, no complain of pain, ambulate to toilet for bladder and bowel eliminations, no complain of diarrhea at this time, patient sleep intermittently, Patient has episode of anxiety on Ativan 1mg po q 6hrs as needed, cont to monitor.
[2022-03-29 07:30] VITALS: BP 127/42
[2022-03-29] MEDS: DOCUSATE SODIUM 100 MG CAPSULE PO SCH (09:00)
[2022-03-29] MEDS: CULTURELLE CAPSULE PO SCH ×2 (09:21→22:50)
[2022-03-29] MEDS: ASPIRIN 81 MG TAB.CHEW PO SCH (09:21)
[2022-03-29] MEDS: MULTIVIT, IRON, MIN NO. 8, FA TABLET PO SCH (09:21)
[2022-03-29] MEDS: buPROPion SR 150 MG TABLET.SA PO SCH (09:21)
[2022-03-29] MEDS: METOPROLOL SUCCINATE XL 25 MG TAB.SR.24H PO SCH ×2 (09:21→22:51)
[2022-03-29] MEDS: DULOXETINE 20 MG CAPSULE.DR PO SCH (09:21)
[2022-03-29] MEDS: CHOLECALCIFEROL 1,000 UNIT TABLET PO SCH (09:22)
[2022-03-29] MEDS: METFORMIN HCL 500 MG TABLET PO SCH ×2 (09:22→17:28)
[2022-03-29] MEDS: HYDROCHLOROTHIAZIDE 12.5 MG CAPSULE PO SCH (09:22)
[2022-03-29] MEDS: GABAPENTIN 300 MG CAPSULE PO SCH ×2 (09:22→17:28)
[2022-03-29] MEDS: buPROPion SR 100 MG TABLET.SA PO SCH (09:22)
[2022-03-29] MEDS: VALSARTAN 80 MG TABLET PO SCH (09:22)
[2022-03-29] MEDS: FOLIC ACID 1 MG TABLET PO SCH (09:22)
[2022-03-29] MEDS: REMEDY ESSENTIAL ZINC PASTE 113 GM TOP SCH ×2 (09:23→22:54)
[2022-03-29] MEDS: GLUCERNA SHAKE 237 ML CAN PO SCH ×2 (12:36→17:29)
[2022-03-29 15:08] VITALS: BP 132/50
[2022-03-29] MEDS: HYDROCODONE/APAP 10-325 MG TABLET PO PRN (17:50)
[2022-03-29 20:00] VITALS: BP 136/52
[2022-03-29] MEDS: MELATONIN 3 MG TABLET PO SCH (22:50)
[2022-03-29] MEDS: TRAZODONE 100 MG TABLET PO SCH (22:50)
[2022-03-30] MEDS: LORAZEPAM 1 MG TABLET PO PRN (00:01)
[2022-03-30 04:00] VITALS: BP 108/38
[2022-03-30 08:00] VITALS: BP 138/46
[2022-03-30] MEDS: buPROPion SR 150 MG TABLET.SA PO SCH (08:48)
[2022-03-30] MEDS: CHOLECALCIFEROL 1,000 UNIT TABLET PO SCH (08:49)
[2022-03-30] MEDS: DOCUSATE SODIUM 100 MG CAPSULE PO SCH (08:49)
[2022-03-30] MEDS: DULOXETINE 20 MG CAPSULE.DR PO SCH (08:49)
[2022-03-30] MEDS: ASPIRIN 81 MG TAB.CHEW PO SCH (08:49)
[2022-03-30] MEDS: HYDROCHLOROTHIAZIDE 12.5 MG CAPSULE PO SCH (08:49)
[2022-03-30] MEDS: CULTURELLE CAPSULE PO SCH ×2 (08:49→20:29)
[2022-03-30] MEDS: FOLIC ACID 1 MG TABLET PO SCH (08:49)
[2022-03-30] MEDS: buPROPion SR 100 MG TABLET.SA PO SCH (08:49)
[2022-03-30] MEDS: MULTIVIT, IRON, MIN NO. 8, FA TABLET PO SCH (08:50)
[2022-03-30] MEDS: GABAPENTIN 300 MG CAPSULE PO SCH ×2 (08:50→16:49)
[2022-03-30] MEDS: REMEDY ESSENTIAL ZINC PASTE 113 GM TOP SCH ×2 (08:51→20:29)
[2022-03-30] MEDS: GLUCERNA SHAKE 237 ML CAN PO SCH ×2 (08:52→16:49)
[2022-03-30] MEDS: VALSARTAN 80 MG TABLET PO SCH (08:54)
[2022-03-30] MEDS: METOPROLOL SUCCINATE XL 25 MG TAB.SR.24H PO SCH ×2 (08:54→20:29)
[2022-03-30] MEDS: METFORMIN HCL 500 MG TABLET PO SCH ×2 (09:01→17:53)
[2022-03-30] MEDS: HYDROCODONE/APAP 10-325 MG TABLET PO PRN ×2 (14:37→20:31)
[2022-03-30 15:00] VITALS: BP 121/67
--- NOTE | 2022-03-30 15:58 | NUR ---
Patient is comfortable at this time. Awake in bed. She is breathing on normal room air. No complaint of pain in the morning, however around 1434 she asked for a pain pill to be given. Sn, administered Carpio. Patient able to swallow with no discomfort. No apparent distress noted. Patient is ambulatory with assist. She was able to walk with PT today.
[2022-03-30] MEDS: TRAZODONE 100 MG TABLET PO SCH (20:29)
[2022-03-30] MEDS: MELATONIN 3 MG TABLET PO SCH (20:29)
[2022-03-30 20:32] VITALS: BP 104/48
[2022-03-31 04:53] VITALS: BP 99/46
[2022-03-31 08:03] VITALS: BP 121/40
[2022-03-31] MEDS: MULTIVIT, IRON, MIN NO. 8, FA TABLET PO SCH (08:06)
[2022-03-31] MEDS: CULTURELLE CAPSULE PO SCH ×2 (08:06→20:12)
[2022-03-31] MEDS: buPROPion SR 100 MG TABLET.SA PO SCH (08:06)
[2022-03-31] MEDS: ASPIRIN 81 MG TAB.CHEW PO SCH (08:06)
[2022-03-31] MEDS: DOCUSATE SODIUM 100 MG CAPSULE PO SCH (08:06)
[2022-03-31] MEDS: METFORMIN HCL 500 MG TABLET PO SCH ×2 (08:06→17:00)
[2022-03-31] MEDS: GABAPENTIN 300 MG CAPSULE PO SCH ×2 (08:06→16:11)
[2022-03-31] MEDS: HYDROCHLOROTHIAZIDE 12.5 MG CAPSULE PO SCH (08:08)
[2022-03-31] MEDS: buPROPion SR 150 MG TABLET.SA PO SCH (08:08)
[2022-03-31] MEDS: VALSARTAN 80 MG TABLET PO SCH (08:08)
[2022-03-31] MEDS: METOPROLOL SUCCINATE XL 25 MG TAB.SR.24H PO SCH ×2 (08:08→20:11)
[2022-03-31] MEDS: FOLIC ACID 1 MG TABLET PO SCH (08:08)
[2022-03-31] MEDS: DULOXETINE 20 MG CAPSULE.DR PO SCH (08:09)
[2022-03-31] MEDS: CHOLECALCIFEROL 1,000 UNIT TABLET PO SCH (08:09)
[2022-03-31] MEDS: GLUCERNA SHAKE 237 ML CAN PO SCH ×2 (08:09→16:11)
[2022-03-31] MEDS: REMEDY ESSENTIAL ZINC PASTE 113 GM TOP SCH ×2 (09:27→20:12)
[2022-03-31] MEDS: HYDROCODONE/APAP 10-325 MG TABLET PO PRN ×2 (09:51→20:12)
[2022-03-31 16:02] VITALS: BP 115/58
[2022-03-31 20:00] VITALS: BP 154/76
[2022-03-31] MEDS: TRAZODONE 100 MG TABLET PO SCH (20:11)
[2022-03-31] MEDS: MELATONIN 3 MG TABLET PO SCH (20:12)
[2022-04-01] MEDS: LORAZEPAM 1 MG TABLET PO PRN (02:14)
[2022-04-01] MEDS: HYDROCODONE/APAP 10-325 MG TABLET PO PRN ×2 (02:14→14:52)
[2022-04-01 04:00] VITALS: BP 102/45
[2022-04-01 07:33] VITALS: BP 124/44
[2022-04-01] MEDS: DULOXETINE 20 MG CAPSULE.DR PO SCH (08:01)
[2022-04-01 08:02] VITALS: BP 124/44
[2022-04-01] MEDS: VALSARTAN 80 MG TABLET PO SCH (08:02)
[2022-04-01] MEDS: HYDROCHLOROTHIAZIDE 12.5 MG CAPSULE PO SCH (08:02)
[2022-04-01] MEDS: GABAPENTIN 300 MG CAPSULE PO SCH (08:02)
[2022-04-01] MEDS: DOCUSATE SODIUM 100 MG CAPSULE PO SCH (08:02)
[2022-04-01] MEDS: MULTIVIT, IRON, MIN NO. 8, FA TABLET PO SCH (08:02)
[2022-04-01] MEDS: buPROPion SR 100 MG TABLET.SA PO SCH (08:02)
[2022-04-01] MEDS: METOPROLOL SUCCINATE XL 25 MG TAB.SR.24H PO SCH (08:02)
[2022-04-01] MEDS: buPROPion SR 150 MG TABLET.SA PO SCH (08:02)
[2022-04-01] MEDS: METFORMIN HCL 500 MG TABLET PO SCH (08:02)
[2022-04-01] MEDS: CULTURELLE CAPSULE PO SCH (08:02)
[2022-04-01] MEDS: CHOLECALCIFEROL 1,000 UNIT TABLET PO SCH (08:02)
[2022-04-01] MEDS: GLUCERNA SHAKE 237 ML CAN PO SCH (08:03)
[2022-04-01] MEDS: FOLIC ACID 1 MG TABLET PO SCH (08:03)
[2022-04-01] MEDS: ASPIRIN 81 MG TAB.CHEW PO SCH (08:15)
[2022-04-01] MEDS: REMEDY ESSENTIAL ZINC PASTE 113 GM TOP SCH (08:15)
--- NOTE | 2022-04-01 16:06 | NUR ---
dc orders received noted and carried out dc instruction and education given to the pt .pt said she will follow up with her pcp in one week ,pt left the facility via private car in stable condition
== END 2022-04-01 16:10 | disposition home health service (06) | DRG 392 ==
PROVIDERS: ADMIT Physical Medicine & Rehabilitation Pain Medicine; ATTEND Physical Medicine & Rehabilitation Pain Medicine
DX: K57.20 Diverticulitis of large intestine with perforation and abscess without bleeding (principal); R53.1 Weakness; I10 Essential (primary) hypertension; E11.9 Type 2 diabetes mellitus without complications; G89.29 Other chronic pain; E87.8 Other disorders of electrolyte and fluid balance, not elsewhere classified; M54.9 Dorsalgia, unspecified; Z88.5 Allergy status to narcotic agent; Z88.8 Allergy status to other drugs, medicaments and biological substances
CPT/HCPCS: 97535-GO-CO